=== PATIENT | female | born 1985 | race Hispanic/Latino ===

== ENCOUNTER 2018-04-14 18:11 | Emergency (ER) | payer BC ==
[2018-04-14 18:14] VITALS: BP 144/98; PULSE 86; RESP 18; TEMP 98.1; O2SAT 100
--- NOTE | 2018-04-14 18:26 | ED PDOC ---
HPI: Female Pain Time Seen by Provider: 04/14/18 18:18 Chief Complaint (Nursing): Female Genitourinary History Per: Patient Onset/Duration Of Symptoms: Days (14) Current Symptoms Are (Timing): Still Present Severity: Moderate Quality Of Discomfort: Cramping Additional Complaint(s): Vaginal bleeding intermittemtly heavy over past 2 weeks. Miscarried 2 weeks ago but has had persistent bleeding and cramps Abnormal Vaginal Bleeding: Yes Past Medical History Vital Signs: Last Vital Signs Temp 98.1 F 04/14/18 18:13 Pulse 86 04/14/18 18:13 Resp 18 04/14/18 18:13 BP 144/98 H 04/14/18 18:13 Pulse Ox 100 04/14/18 18:13 - Medical History PMH: No Chronic Diseases - Family History Family History: States: Unknown Family Hx - Allergies Allergies/Adverse Reactions: Allergies Allergy/AdvReac Type Severity Reaction Status Date / Time No Known Allergies Allergy Verified 04/14/18 18:16 Review of Systems Gastrointestinal: Positive for: Abdominal Pain Genitourinary Female: Positive for: Vaginal Bleeding Physical Exam - Physical Exam Appears: Positive for: Non-toxic, No Acute Distress Skin: Positive for: Normal Color, Warm, DRY Gastrointestinal/Abdominal: Positive for: Bowel Sounds, Soft. Negative for: Tenderness Pelvic Exam: Positive for: Blood (Mod blood in vault. Cervix closed.). Negative for: External Exam Normal, Mass, Tender Adnexa, Tender Uterus - ECG O2 Sat by Pulse Oximetry: 100 Disposition - Clinical Impression Clinical Impression: Incomplete - Patient ED Disposition Is Patient to be Admitted: Transfer of Care - Disposition Disposition: Transfer of Care Disposition Time: 19:00 Condition: FAIR Forms: [employer] (Frisian) Patient Signed Over To: Elvin Clayton
[2018-04-14 19:12] LABS: BASO # 0.1 K/uL (0.0-0.2); BASO % 0.6 % (0.0-2.0); EOS # 0.1 K/uL (0.0-0.7); EOS % 1.1 % (0.0-4.0); HEMOGLOBIN 12.7 g/dL (12.0-16.0); LYMPH # 1.3 K/uL (1.0-4.3); LYMPH % 12.7 % (20.0-40.0); MEAN CELL VOLUME 86.1 fl (81.0-99.0); MEAN CORPUSCULAR HEMOGLOBIN 28.3 pg (27.0-31.0); MEAN CORPUSCULAR HGB CONC 32.9 g/dL (33.0-37.0); MEAN PLATELET VOLUME 8.1 fl (7.2-11.7); MONO # 0.6 K/uL (0.0-0.8); MONO % 5.6 % (0.0-10.0); RBC 4.47 Mil/uL (3.80-5.20); RED CELL DISTRIBUTION WIDTH 13.1 % (11.5-14.5); WHITE BLOOD COUNT 10.1 K/uL (4.8-10.8)
[2018-04-14 19:23] LABS: ALB/GLOB RATIO 1.2 (1.0-2.1); ALBUMIN 4.2 g/dL (3.5-5.0); ALT/SGPT 18 U/L (9-52); AST/SGOT 18 U/L (14-36); BLOOD UREA NITROGEN 13 mg/dl (7-17); CALCIUM 9.3 mg/dL (8.4-10.2); GFR NON-AFRICAN AMERICAN > 60
--- NOTE | 2018-04-14 20:12 | ED PDOC ---
- Laboratory Results Result Diagrams: 04/14/18 19:02 04/14/18 19:02 - ECG O2 Sat by Pulse Oximetry: 100 Medical Decision Making Medical Decision Makin:00 Patient endorsed to this provider from Dr. Metzger. Pending ultrasound and bloodwork. 2044 History Vaginal bleeding. Comparison None available. Findings Uterus Single intrauterine gestational sac. Gestational sac diameter equivalent to 5 wks/3 days gestation Uterus measures 7.8 x 4.3 x 5.4 cm. No mass Cervix Long and closed measuring 3.3 cm. No cervical abnormality seen. Right Ovary Measures 2.1 x 1.6 x 2.8 cm. No mass. Normal flow. Left Ovary Measures 2.9 x 1.7 x 1.9 cm. No mass. Normal flow. Free Fluid None. Other Findings None. Impression Single intrauterine gestational sac consistent with 5 weeks 3 days gestation. No pole or heart beat. Follow up study in 5-7 days is recommended. Electronically signed on Apr 14, 2018 8:35:10 PM EST by: Catracho Shukla M.D., MBA Certified By [facility] Trained MRI and CT Specialist Patient re-evaluated at the bedside, states she's feeling much better. Patient states her beta today is significantly less than previously drawn last week. States she wishes for no intervention (medical or surgical) and would prefer an expectant approach. Patient will followup with her OB on Tuesday for further testing/evaluation as warranted. Very well appearing upon discharge - Scribe Attestation: Documented by Nir Tracy acting as a scribe for Elvin Clayton MD. Provider Scribe Attestation: All medical record entries made by the Scribe were at my direction and personally dictated by me. I have reviewed the chart and agree that the record accurately reflects my personal performance of the history, physical exam, medical decision making, and the department course for this patient. I have also personally directed, reviewed, and agree with the discharge instructions and disposition. Disposition - Clinical Impression Clinical Impression: Incomplete - POA Present On Arrival: None - Disposition Referrals: E[facility] Davis [Outside] Disposition: Routine/Home Disposition Time: 21:00 Condition: FAIR Instructions: Miscarriage Forms: [employer] (Tongan)
--- NOTE | 2018-04-15 07:36 | US ---
Date of service: 04/14/2018 PROCEDURE: HISTORY: r/o ectopic COMPARISON: TECHNIQUE: FINDINGS: The uterus measures 7.8 x 4.3 x 5.4 centimeters. There is an intrauterine gestational sac measuring 1.3 centimeters corresponding to 5 weeks 3 days gestation. Yolk sac pole is not visualized. The ovaries have a normal appearance. IMPRESSION: Five week intrauterine . No gestational sac. Ectopic not excluded. Recommend short-term interval follow-up and correlation with beta HCG levels.
== END 2018-04-14 21:00 | disposition home or self-care (01) ==
LOC: H.ER 18:11
DX: O03.4 Incomplete spontaneous abortion without complication (principal); Z3A.01 Less than 8 weeks gestation of pregnancy